=== PATIENT | female | born 1975 | race Caucasian/White ===

== ENCOUNTER 2020-02-13 22:51 | Emergency (ER) | payer OTHER ==
[2020-02-13 23:26] LABS: Bacteria/HPF 1+ HPF (None Seen); Bilirubin Negative (Negative); Blood, Urine Large (Negative); Clarity Cloudy (Clear); Glucose, Urine (Dipstick) 500 mg/dL (Negative); Ketone, Urine Negative (Negative); Leukocyte Negative (Negative); Nitrite Negative (Negative); Protein, Urine (Dipstick) Negative (Neg-Trace); RBC/HPF Greater than 50 HPF (0-3); Squamous Epithelial 0-3 HPF (0-3); Urobilinogen 0.2 mg/dL (Less than 2); pH, Urine 5.5 (5.0-9.0)
[2020-02-13] MEDS ORDERED: Morphine 4 MG/ML VIAL ONE (23:29)
[2020-02-13] MEDS ORDERED: Ondansetron PF 4 MG/2 ML Vial ONE (23:29)
[2020-02-13 23:39] LABS: #Basophils 0.1 thou/uL (0.0-0.2); #Eosinphils 0.6 thou/uL (0.0-0.7); #Lymphocytes 2.8 thou/uL (1.20-3.40); #Monocytes 0.9 thou/uL (0.11-0.59); %Basophils 0.6 % (0.0-1.0); %Lymphocytes 22.6 % (21.0-51.0); %Monocytes 7.2 % (0.0-10.0); %Neutrophils 64.6 % (42.0-75.0); Hemoglobin 12.4 g/dL (12.0-16.0); Mean Corpuscular HGB CONC 28.8 g/dL (32.0-36.0); Mean Corpuscular Hemoglobin 22.2 pg (27.0-31.0); Mean Corpuscular Volume 77.2 fL (78.0-98.0); Mean Platelet Volume 8.5 fL (7.4-10.4); Platelet Count 278 thou/uL (130-400); Red Blood Cell (RBC) Count 5.59 mill/uL (4.20-5.40); White Blood Cell (WBC) Count 12.3 thou/uL (4.8-10.8)
[2020-02-13 23:52] LABS: ALT (SGPT) 18 U/L (8-55); AST (SGOT) 13 U/L (5-34); Albumin 4.3 g/dL (3.5-5.0); Alkaline Phosphatase 113 U/L (40-110); Anion Gap 18 mmol/L (10-20); BUN (Urea Nitrogen) 11 mg/dL (7.0-18.7); Bilirubin, Total Less than 0.2 mg/dL (0.2-1.2); Calc. Creatinine Clearance 0 mL/min (70-130); Calcium 9.3 mg/dL (7.8-10.44); Carbon Dioxide 22 mmol/L (22-29); Chloride 100 mmol/L (98-107); Estimated GFR-MDRD 60; Globulin 3.5 g/dL (2.4-3.5); Glucose 521 mg/dL (70-105); Lipase 58 U/L (8-78); Potassium 4.3 mmol/L (3.5-5.1); Protein, Total 7.8 g/dL (6.0-8.3); Sodium 136 mmol/L (136-145)
[2020-02-13 23:59] LABS: Anisocytosis SLIGHT = 6-15 cells (100X) (0-5/hpf); MDiff Complete? YES; Platelet Morphology Comment Appears Adequate
[2020-02-14] MEDS ORDERED: Ketorolac Tromethamine 30 MG/ML VIAL ONE (00:02)
[2020-02-14] MEDS ORDERED: HYDROcodone/Acetaminophen 5/325 mg Tablet ONE (00:24)
--- NOTE | 2020-02-14 07:29 | CT ---
PRELIMINARY REPORT/[facility]/EMERGENCY AFTER HOURS PROCEDURE: EXAM: CT Abdomen and Pelvis Without Intravenous Contrast CLINICAL HISTORY: RT FLANK PAIN THAT STARTED AT 4PM YESTERDAY, PT HAS HX OF KIDNEY STONES, NO PRIOR TECHNIQUE: Axial computed tomography images of the abdomen and pelvis without intravenous contrast. CONTRAST: None. COMPARISON: None provided. FINDINGS: LUNG BASES: No basilar airspace consolidation or pleural effusion. LIVER: Unremarkable. GALLBLADDER AND BILE DUCTS: Unremarkable. No calcified stone. No ductal dilation. PANCREAS: Unremarkable. SPLEEN: Unremarkable. ADRENAL GLANDS: Unremarkable. KIDNEYS, URETERS, AND BLADDER: There is bilateral nephrolithiasis. There is no hydronephrosis. No ureteral or bladder calculi. STOMACH AND BOWEL: No obstruction. No wall thickening. No CT evidence of colitis or acute diverticulitis. Diverticulosi s. APPENDIX: No CT evidence for appendicitis. PERITONEUM: No free fluid. No free air. LYMPH NODES: No lymphadenopathy. REPRODUCTIVE: The uterus is absent. VASCULATURE: No aortic aneurysm. ABDOMINAL WALL AND SOFT TISSUES: Unremarkable. BONES: No fracture or suspicious osseous abnormality. IMPRESSION: Bilateral nephrolithiasis without evidence of ureteral stone or obstructive change ELECTRONICALLY SIGNED BY: Jess Espinoza D.O. Feb 14, 2020 12:05:52 AM CDT This report is intended for review by the ordering physician only, in accordance of law. If you recei ve this report in error, please call [facility] at [phone]. FINAL REPORT CT ABDOMEN AND PELVIS WITHOUT CONTRAST: Date: 02/13/2020 The lung bases suggest some scarring or atelectasis in the right middle lobe region. There may be sury e generalized scarring or atelectasis in the lingula and the lower lobes. I cannot exclude chronic nancy ng disease here, but would need to see more and have more comparisons. The liver, spleen, pancreas, gallbladder, adrenal glands, and abdominal aorta showed no acute finding s. The left adrenal gland was slightly more nodular and there would be a change of a subcentimeter n odule here, but it is not defined well enough to be certain. I doubt its current significance. The ma zandra finding on the study is bilateral renal calculi of varying sizes. I do not see any hydronephrosis . No ureteral calculi were appreciated. The bowel shows no distention, inflammatory change around it, or other acute finding. The appendix ap pears normal. No free air or free fluid was seen. CT of the pelvis showed no pelvic masses, calculi in the bladder, or free fluid. The pelvic calcifica tions appear to be phleboliths and not ureteral in nature. IMPRESSION: 1. No acute abdominal findings. 2. Bilateral nonobstructing renal calculi. No ureteral calculi appreciated at the moment. 3. Possible chronic lung disease. Report in agreement with preliminary reading by [facility]. POS: HOME
== END 2020-02-14 01:59 | disposition home or self-care (01) ==
LOC: BURERS 22:51
DX: N20.0 Calculus of kidney (principal); E11.65 Type 2 diabetes mellitus with hyperglycemia; I25.2 Old myocardial infarction; F17.210 Nicotine dependence, cigarettes, uncomplicated; R11.2 Nausea with vomiting, unspecified
CPT/HCPCS: 36416; 74176; 80053; 81003; 81015; 83690; 85025; 87077; 87086; 87186; 93005; 96361; 96374; 96375; J1885; J2270; J2405